=== PATIENT | female | born 1960 | race African-American/Black ===

== ENCOUNTER 2018-08-13 18:51 | Emergency (ER) | payer BC ==
[~2018-08-13] VITALS: Ht 165.1 cm; Wt 90.7 kg
[2018-08-13] MEDS ORDERED: IBUP400T18 PO (19:42)
[2018-08-13] MEDS ORDERED: ASPI81TA50 PO (19:42)
[2018-08-13] MEDS ORDERED: PARO20TA3 PO (19:42)
[2018-08-13] MEDS ORDERED: RANI15SY PO (19:42)
[2018-08-13] MEDS ORDERED: ACET500T68 PO (19:42)
[2018-08-13] MEDS ORDERED: ATOR40TA59 PO (19:42)
[2018-08-13] MEDS ORDERED: AMLO5TAB7 PO (19:42)
--- NOTE | 2018-08-13 19:43 | EKG ---
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
[2018-08-13] MEDS ORDERED: ASPIRIN 325 MG TABLET PO ONE (19:45)
[2018-08-13] MEDS ORDERED: IV NORMAL SALINE 1000ML BAG 1,000 ML IV ONE (19:45)
[2018-08-13 20:05] LABS: CALCIUM 9.4 mg/dL (8.5-10.1); CREATININE 0.8 mg/dL (0.6-1.0); GFR 88.8; POTASSIUM 3.4 mmol/L (3.5-5.1)
[2018-08-13 20:12] LABS: ALBUMIN 3.7 g/dL (3.4-5.0); ALBUMIN/GLOBULIN RATIO 1.1 (1.0-1.7); MAGNESIUM 2.2 mg/dL (1.8-2.4); PROTHROMBIN TIME PATIENT 12.7 SEC (11.7-14.0); TOTAL BILIRUBIN 0.4 mg/dL (0.2-1.0); TOTAL PROTEIN 7.2 g/dL (6.4-8.2)
[2018-08-13 20:15] LABS: BASO # 0.1 x10^3/uL (0.0-0.2); BASO % 1 % (0-3); EOS # 0.3 x10^3/uL (0.0-0.7); EOS % 4 % (0-3); HEMATOCRIT 33.6 % (36.0-47.0); HEMOGLOBIN 11.3 g/dL (12.0-15.5); LYMPH # 1.2 x10^3/uL (1.0-4.8); LYMPH % 16 % (24-48); MEAN CORPUSCULAR HEMOGLOBIN 31 pg (25-35); MEAN CORPUSCULAR HGB CONC 34 g/dL (31-37); MEAN CORPUSCULAR VOLUME 93 fL (79-100); MONO # 0.7 x10^3/uL (0.0-1.1); MONO % 9 % (0-9); NEUT # 5.4 x10^3uL (1.8-7.7); NEUT % 71 % (31-73); PLATELET COUNT 260 x10^3/uL (140-400); RED BLOOD COUNT 3.62 x10^6/uL (3.50-5.40); RED CELL DISTRIBUTION WIDTH 13.4 % (11.5-14.5); WHITE BLOOD COUNT 7.6 x10^3/uL (4.0-11.0)
--- NOTE | 2018-08-13 20:33 | PHYS DOC ---
Past Medical History Past Medical History: Anxiety, Depression, High Cholesterol, Hypertension Additional Past Medical Histor: PALPITATIONS Past Surgical History: , Tonsillectomy Additional Past Surgical Histo: CLAVICLE Alcohol Use: Heavy Additional Information: "MAYBE A BEER EVERYDAY, MAYBE A HALF PINT TWICE A WEEK" Drug Use: None Adult General Chief Complaint Chief Complaint: Palpitations HPI HPI Patient is a 57 year old female with a past medical history of hypertension, hyperlipidemia, anxiety, depression who presents with palpitations and a feeling of a fast heart rate. Patient notes she has felt palpitations throughout the day today that are similar to the palpitations she feels often. Patient notes the only new symptom today is a feeling of a fast heart rate. Patient notes she drank a large amount of alcohol last night including half of a pint and multiple beers. Patient has had associated shortness of breath with exeration and fatigue today. Patient notes she has also experienced "pings" of chest discomfort with radiation to her left neck. Patient denies any association of her chest discomfort with either the palpitations or fast heart rate and no relation to exertion. Patient denies any diaphoresis, nausea, headache. Patient notes she has had one cup of coffee today and one beer with dinner and has smoked approximately 6 cigarettes today. Patient has a chemical stress test scheduled for 09/01/18 for the evaluation of her recurrent palpitations she experiences. Review of Systems Review of Systems Constitutional: Denies fever or chills [] Eyes: Denies change in visual acuity, redness, or eye pain [] HENT: Denies nasal congestion or sore throat [] Respiratory: Denies cough, notes shortness of breath [] Cardiovascular: No chest discomfort and palpitations[] GI: Denies abdominal pain, nausea, vomiting, bloody stools or diarrhea [] : Denies dysuria or hematuria [] Musculoskeletal: Denies back pain or joint pain [] Integument: Denies rash or skin lesions [] Neurologic: Denies headache, focal weakness or sensory changes [] Complete systems were reviewed and found to be within normal limits, except as documented in this note. Current Medications Current Medications Current Medications Medications (Trade) Dose Ordered Sig/Harpreet Start Time Stop Time Status Last Admin Dose Admin Aspirin (Drew Aspirin) 325 mg 1X ONCE 08/13/18 19:45 08/13/18 19:48 DC 08/13/18 20:16 325 MG Sodium Chloride 1,000 ml @ 1,000 mls/hr 1X ONCE 08/13/18 19:45 08/13/18 20:44 DC 08/13/18 20:13 1,000 MLS/HR Allergies Allergies Allergies Coded Allergies Type Severity Reaction Last Updated Verified Penicillins Allergy Unknown 08/13/18 Yes Physical Exam Physical Exam Constitutional: Well developed, well nourished, no acute distress, non-toxic appearance. [] HENT: Normocephalic, atraumatic,normal, oropharynx moist, no oral exudates, nose normal. [] Eyes: PERRL, EOMI, conjunctiva normal, no discharge. [] Neck: Normal range of motion, no tenderness, supple, no stridor. [] Cardiovascular:Heart rate regular rhythm, no murmur. [] Lungs & Thorax: Bilateral breath sounds clear to auscultation. No chest wall tenderness[] Abdomen: Bowel sounds normal, soft, no tenderness. [] Skin: Warm, dry, no erythema, no rash. [] Back: No tenderness, no CVA tenderness. [] Extremities: No tenderness, no cyanosis, no clubbing, ROM intact, no edema. [] Neurologic: Alert and oriented X 3, normal motor function, normal sensory function, no focal deficits noted. [] Psychologic: Affect normal, judgement normal, mood normal. [] Current Patient Data Vital Signs Vital Signs Date Time Temp Pulse Resp B/P (MAP) Pulse Ox O2 Delivery O2 Flow Rate FiO2 08/13/18 19:23 98.2 82 18 143/71 (95) 97 Room Air 98.2 Lab Values Laboratory Tests Test 08/13/18 19:40 08/13/18 20:05 08/13/18 21:32 Prothrombin Time 12.7 SEC (11.7-14.0) Prothrombin Time INR 1.0 (0.8-1.1) Sodium Level 143 mmol/L (136-145) Potassium Level 3.4 mmol/L (3.5-5.1) L Chloride Level 105 mmol/L (98-107) Carbon Dioxide Level 24 mmol/L (21-32) Anion Gap 14 (6-14) Blood Urea Nitrogen 11 mg/dL (7-20) Creatinine 0.8 mg/dL (0.6-1.0) Estimated GFR (Cockcroft-Gault) 88.8 BUN/Creatinine Ratio 14 (6-20) Glucose Level 122 mg/dL (70-99) H Calcium Level 9.4 mg/dL (8.5-10.1) Magnesium Level 2.2 mg/dL (1.8-2.4) Total Bilirubin 0.4 mg/dL (0.2-1.0) Aspartate Amino Transferase (AST) 11 U/L (15-37) L Alanine Aminotransferase (ALT) 20 U/L (14-59) Alkaline Phosphatase 117 U/L (46-116) H Creatine Kinase 59 U/L (26-192) Troponin I Quantitative < 0.017 ng/mL (0.000-0.055) < 0.017 ng/mL (0.000-0.055) IP-Umc-N-Type Natriuretic Peptide 24 pg/mL (0-124) Total Protein 7.2 g/dL (6.4-8.2) Albumin 3.7 g/dL (3.4-5.0) Albumin/Globulin Ratio 1.1 (1.0-1.7) Lipase 218 U/L (73-393) White Blood Count 7.6 x10^3/uL (4.0-11.0) Red Blood Count 3.62 x10^6/uL (3.50-5.40) Hemoglobin 11.3 g/dL (12.0-15.5) L Hematocrit 33.6 % (36.0-47.0) L Mean Corpuscular Volume 93 fL (79-100) Mean Corpuscular Hemoglobin 31 pg (25-35) Mean Corpuscular Hemoglobin Concent 34 g/dL (31-37) Red Cell Distribution Width 13.4 % (11.5-14.5) Platelet Count 260 x10^3/uL (140-400) Neutrophils (%) (Auto) 71 % (31-73) Lymphocytes (%) (Auto) 16 % (24-48) L Monocytes (%) (Auto) 9 % (0-9) Eosinophils (%) (Auto) 4 % (0-3) H Basophils (%) (Auto) 1 % (0-3) Neutrophils # (Auto) 5.4 x10^3uL (1.8-7.7) Lymphocytes # (Auto) 1.2 x10^3/uL (1.0-4.8) Monocytes # (Auto) 0.7 x10^3/uL (0.0-1.1) Eosinophils # (Auto) 0.3 x10^3/uL (0.0-0.7) Basophils # (Auto) 0.1 x10^3/uL (0.0-0.2) Laboratory Tests 08/13/18 20:05 Laboratory Tests 08/13/18 19:40 EKG EKG @ 1928 normal sinus rhythm, regular rate at 85, QRS 92, QTC 469. No acute ischemic changes noted.[] Radiology/Procedures Radiology/Procedures [] Course & Med Decision Making Course & Med Decision Making 57-year-old female with past medical history of hypertension, hyperlipidemia, anxiety, depression and palpitations presenting with palpitations throughout the day and a feeling of a fast heart rate this evening.pings" she notes she has also had "pings" of chest discomfort lasting for approximately one second. Denies relation to exertion, diaphoresis, nausea. Notes radiation to her left neck and shortness of breath throughout the day today. Patient is to drink large amount of alcohol last night and has had one beer, 6 cigarettes, and one cup of coffee today. Patient has a chemical stress test scheduled for 09/01/18 or evaluation of her current palpitations. [] Dragon Disclaimer Dragon Disclaimer This electronic medical record was generated, in whole or in part, using a voice recognition dictation system. Departure Departure Impression: Primary Impression: Palpitations Disposition: 01 HOME, SELF-CARE Condition: STABLE Referrals: UNKNOWN PCP NAME (PCP) CLAUDIA TABOR MD Patient Instructions: Palpitations, [id number] SMITA HERNANDEZ DO Aug 13, 2018 20:33
--- NOTE | 2018-08-13 21:47 | RAD ---
PA and lateral chest radiographs 08/13/2018 CLINICAL HISTORY: Palpitations and cough. PA and lateral digital radiographs of the chest was obtained. Comparison study is dated 12/08/2007. The cardiac and mediastinal silhouettes are within normal limits in size and configuration. No acute pulmonary infiltrate is seen. No pleural effusion or pneumothorax is noted. Mild degenerative changes are seen involving the thoracic spine. IMPRESSION: No acute abnormality is seen. Electronically signed by: Jb Arora MD (08/13/2018 9:44 PM) [facility]
[2018-08-13 22:36] VITALS: BP 141/76
== END 2018-08-13 22:45 | disposition home or self-care (01) ==
LOC: ER 18:51
DX: R00.2 Palpitations (principal); R06.02 Shortness of breath; R53.83 Other fatigue; F41.9 Anxiety disorder, unspecified; F32.9 Major depressive disorder, single episode, unspecified; E78.00 Pure hypercholesterolemia, unspecified; I10 Essential (primary) hypertension; F17.210 Nicotine dependence, cigarettes, uncomplicated; F10.20 Alcohol dependence, uncomplicated; Y90.9 Presence of alcohol in blood, level not specified; Z90.89 Acquired absence of other organs; Z98.890 Other specified postprocedural states; Z88.0 Allergy status to penicillin
CPT/HCPCS: 36415; 71046; 80053; 82550; 83690; 83735; 83880; 84484; 85025; 85610; 93005; 99285; J7030